=== PATIENT | male | born 1970 | race Two or more races ===

== ENCOUNTER → 2023-01-16 | Outpatient (CLI) | payer OTHER | END | disposition home or self-care (01) | LOC: RAD 12:31 | DX: K57.20 Diverticulitis of large intestine with perforation and abscess without bleeding (principal); R10.9 Unspecified abdominal pain; R19.4 Change in bowel habit ==

== ENCOUNTER 2023-01-22 09:00 | Inpatient (IN) | payer OTHER ==
[~2023-01-22] VITALS: Ht 188 cm; Wt 107.5 kg
[2023-01-22] MEDS ORDERED: CLONAZEPAM1 MG PO (12:50)
[2023-01-22] MEDS ORDERED: LIPITOR20 MG PO (12:51)
[2023-01-28] MEDS ORDERED: INTESTINEX680 M1 PO (12:19)
[2023-01-28] MEDS ORDERED: TRAM1TAB98 PO (12:20)
[2023-01-28] MEDS ORDERED: LEVSIN/SL0.125 MG SL (12:20)
== END 2023-01-28 13:12 | disposition home or self-care (01) | DRG 331 ==
LOC: EDUNIT# 09:00 → O/R 01-25 06:04 → SURH 01-25 06:04
PROVIDERS: ADMIT Surgery; ATTEND Surgery
PROC: 0DBP4ZZ Excision of Rectum, Percutaneous Endoscopic Approach (ICD-10-PCS; 2023-01-25)
PROC: 0DTN4ZZ Resection of Sigmoid Colon, Percutaneous Endoscopic Approach (ICD-10-PCS; principal; 2023-01-25 14:30)
DX: K57.20 Diverticulitis of large intestine with perforation and abscess without bleeding (principal); R19.4 Change in bowel habit; K66.0 Peritoneal adhesions (postprocedural) (postinfection)